=== PATIENT | male | born 1940 | race Two or more races ===

== ENCOUNTER 2023-04-08 10:09 | Emergency (ER) | payer OTHER ==
[~2023-04-08] VITALS: Ht 175.3 cm; Wt 74.8 kg
[2023-04-08] MEDS ORDERED: COZAAR100 MG PO (10:31)
[2023-04-08] MEDS ORDERED: CILOSTAZOL100 MG PO (10:32)
[2023-04-08] MEDS ORDERED: FLOVENT HFA10.6 GM IH (10:32)
[2023-04-08] MEDS ORDERED: XARELTO15 MG PO (10:33)
[2023-04-08] MEDS ORDERED: CHILDREN'S ASPI81 MG PO (10:33)
[2023-04-08] MEDS ORDERED: NEURONTIN300 MG PO (10:34)
== END 2023-04-08 16:33 | disposition home or self-care (01) ==
LOC: ER 10:09
DX: G40.89 Other seizures (principal); I11.0 Hypertensive heart disease with heart failure; I50.9 Heart failure, unspecified; E11.9 Type 2 diabetes mellitus without complications; Z85.89 Personal history of malignant neoplasm of other organs and systems; K21.9 Gastro-esophageal reflux disease without esophagitis; I25.2 Old myocardial infarction; Z95.1 Presence of aortocoronary bypass graft